=== PATIENT | female | born 1935 | race Caucasian/White ===

== ENCOUNTER 2017-03-18 06:10 | Day surgery (SDC) | payer MEDICARE, OTHER ==
[~2017-03-18 06:10] MED LIST: Lactated Ringers 1,000 ML IV SCH
[2017-03-18] MEDS ORDERED: Propofol 200 MG/20 ML SDV ONE (07:44)
[2017-03-18] MEDS ORDERED: fentaNYL 100 MCG/2 ML SDV ONE (07:44)
[2017-03-18 09:41] VITALS: BP 184/105
--- NOTE | 2017-03-18 16:30 | OR ---
PREOPERATIVE DIAGNOSES: Screening colonoscopy. History of bright red blood per rectum. POSTOPERATIVE DIAGNOSIS: Cecal polyp and mild sigmoid diverticulosis. PROCEDURE PROPOSED: Total flexible colonoscopy. PROCEDURE DONE: Total flexible colonoscopy. INDICATION: This is a 81-year-old female, who has not had a colonoscopy for 10 years, was recommended procedure screening colonoscopy. She also had an episode where she was having a little bit of bright red blood per rectum with wiping. She denies any family history and otherwise has no change in her bowels. TECHNIQUE: The patient was brought to the endoscopy suite, placed in left lateral decubitus position. She was sedated with propofol per [employer]ICE [employer]. The flexible video colonoscope was then passed transanally and under visualization advanced to the cecum. The patient was found to have a small polyp in the cecum, removed with 1 bite of the [employer] cold biopsy forceps and submitted for pathologic examination. Otherwise, the ascending, transverse, and descending colon was unremarkable. The sigmoid colon revealed some very mild diverticulosis and the rectal mucosa was normal. There was no evidence of any significant hemorrhoids or other pathology that would account for bright red blood per rectum. The scope was then withdrawn. She tolerated the procedure well. IMPRESSION: 1. Mild sigmoid diverticulosis. 2. Small cecal polyp, removed. PLAN: The patient is reassured, and I felt that at her age, she does not need any future colonoscopies. SCM: 03/18/2017 08:11:26 MODL: 03/18/2017 16:22:05 /[id number]
--- NOTE | 2017-04-01 15:53 | LETTER ---
04/01/2017 RE: SARAH ARRIAZA : 1935 Dear Sarah: The polyp removed from your colon was a small insignificant polyp known as a tubular adenoma. I do not feel you need any future examinations. If you have any further questions regarding this feel free to call. Respectfully,
== END 2017-03-18 09:30 | disposition home or self-care (01) ==
LOC: VM.SDS 06:10
PROVIDERS: ATTEND Surgery
DX: D12.0 Benign neoplasm of cecum (principal); K57.30 Diverticulosis of large intestine without perforation or abscess without bleeding; I25.10 Atherosclerotic heart disease of native coronary artery without angina pectoris; I25.83 Coronary atherosclerosis due to lipid rich plaque; I25.2 Old myocardial infarction; E78.5 Hyperlipidemia, unspecified; E11.9 Type 2 diabetes mellitus without complications; E03.9 Hypothyroidism, unspecified; I10 Essential (primary) hypertension; Z88.0 Allergy status to penicillin; Z79.82 Long term (current) use of aspirin; Z79.899 Other long term (current) drug therapy
CPT/HCPCS: 00810; 45380; J2704; J3010; 88305; J7120

== ENCOUNTER 2019-05-15 10:14 | Emergency (ER) | payer MEDICARE, OTHER ==
[2019-05-15] MEDS ORDERED: Ondansetron 4 MG/2 ML SDV IVPUSH ONE (10:24)
[2019-05-15] MEDS ORDERED: Sodium Chloride 0.9% 10 ML Syringe FLUSH PRN (10:24)
--- NOTE | 2019-05-15 10:29 | EDM.PDOC ---
ED HPI GENERAL MEDICAL PROBLEM - General Source of Information: Reports: Patient, EMS History Limitations: Reports: No Limitations <Javi Camargo - Last Filed: 05/15/19 11:01> <Saran Hernandez - Last Filed: 05/15/19 13:18> - General Chief Complaint: Syncope Stated Complaint: ER Time Seen by Provider: 05/15/19 10:22 - History of Present Illness INITIAL COMMENTS - FREE TEXT/NARRATIVE: Patient presents via EMS after reports of a syncopal episode at [facility]. Patient does not remember the incident. She states she took an oral nitroglycerin SL tablet after having felt a "twinge" in her chest. She denies any chest pain, sob, arm pain or numbness/tingling. She denies jaw or back pain. Some nausea. Blood sugar on scene was 155. Denies unilateral weakness, no speech difficulty, no facial droop. History includes cardiac stent placement 2-3 years ago, diabetes, hypothyroidism. (Javi Camargo) - Related Data Allergies Allergy/AdvReac Type Severity Reaction Status Date / Time codeine Allergy Hives Verified 05/15/19 10:42 cortisone Allergy Rash Verified 05/15/19 10:42 Penicillins Allergy Hives Verified 05/15/19 10:42 lisinopril AdvReac Cough Verified 05/15/19 10:42 Home Meds: Home Meds Ascorbic Acid [Vitamin C] 500 mg PO DAILY 02/02/14 [History] Aspirin [Halfprin] 81 mg PO DAILY 02/02/14 [History] Gabapentin [Neurontin] 100 mg PO BEDTIME 02/02/14 [History] Levothyroxine 150 mcg PO DAILY 02/02/14 [History] Losartan [Cozaar] 50 mg PO DAILY 02/02/14 [History] Metoprolol Succinate [Toprol XL] 75 mg PO DAILY 02/02/14 [History] Multivitamin [Multi Vitamin Daily] 1 each PO DAILY 02/02/14 [History] Omeprazole 20 mg PO DAILY 02/02/14 [History] Simvastatin [Zocor] 20 mg PO BEDTIME 02/02/14 [History] Acetaminophen/Diphenhydramine [Tylenol Pm Ex-Strength Caplet] 1 tab PO BEDTIME 03/11/17 [History] Fish Oil/[place]-3 Fatty Acids [Fish Oil 1,000 MG] 1,000 mg PO DAILY 03/11/17 [ History] Flaxseed Oil [Flaxseed] 1,000 mg PO DAILY 03/11/17 [History] cycloSPORINE [Restasis] 1 each OP BID 03/18/17 [History] Cholecalciferol (Vitamin D3) [Vitamin D] 5,000 unit PO DAILY 05/15/19 [History] Nitroglycerin [Nitrostat] 0.4 mg SL ASDIRECTED PRN 05/15/19 [History] Vitamin B Complex 1 each PO DAILY 05/15/19 [History] Past Medical History HEENT History: Reports: Allergic Rhinitis, Cataract Cardiovascular History: Reports: CAD, High Cholesterol, Hypertension, [place], Stents Respiratory History: Reports: None, SOB Gastrointestinal History: Reports: GERD, Other (See Below) Other Gastrointestinal History: hematochezia Genitourinary History: Reports: Urinary Incontinence [employer]PER[employer]OR [employer]ILL History: Reports: Prolapsed Uterus, Other (See Below) 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 D&C Musculoskeletal History: Reports: Arthritis Neurological History: Reports: Neuropathy, Diabetic Psychiatric History: Reports: Anxiety, Depression, Other (See Below) Other Psychiatric History: insomnia Endocrine/Metabolic History: Reports: Diabetes, Type II, Hypothyroidism Hematologic History: Reports: None Oncologic (Cancer) History: Reports: None Dermatologic History: Reports: None - Past Surgical History Head Surgeries/Procedures: Reports: None GI Surgical History: Reports: None Female Surgical History: Reports: D&C, Hysterectomy, Oophorectomy Neurological Surgical History: Reports: None <Javi Camargo M - Last Filed: 05/15/19 11:01> ED ROS GENERAL - Review of Systems Review Of Systems: See Below Constitutional: Reports: No Symptoms HEENT: Reports: No Symptoms Respiratory: Reports: Pleuritic Chest Pain Cardiovascular: Reports: Chest Pain, Syncope Endocrine: Reports: No Symptoms GI/Abdominal: Reports: No Symptoms : Reports: No Symptoms Musculoskeletal: Reports: No Symptoms Skin: Reports: No Symptoms Neurological: Reports: No Symptoms Psychiatric: Reports: No Symptoms Hematologic/Lymphatic: Reports: No Symptoms Immunologic: Reports: No Symptoms <Saran Hernandez W - Last Filed: 05/15/19 13:18> - Physical Exam Exam: See Below Exam Limited By: No Limitations General Appearance: Alert, WD/WN, No Apparent Distress Throat/Mouth: Normal Inspection, Normal Lips, Normal Teeth, Normal Voice Head Exam: Atraumatic, Normocephalic Neck: Normal Inspection, Supple, Non-Tender, Full Range of Motion Respiratory/Chest: No Respiratory Distress, Lungs Clear, Normal Breath Sounds, No Accessory Muscle Use, Chest Non-Tender Cardiovascular: Normal Peripheral Pulses, Regular Rate, Rhythm, No Edema, No Gallop, No JVD, No Murmur, No Rub GI/Abdominal: Normal Bowel Sounds, Soft, Non-Tender, No Organomegaly, No Distention, No Mass (Female) Exam: Deferred Rectal (Female) Exam: Deferred Neuro Exam (Abbreviated): Alert, Oriented, CN II-XII Intact, No Motor/Sensory Deficits Extremities: Normal Inspection, Normal Range of Motion, Normal Capillary Refill Psychiatric: Normal Affect, Normal Mood Skin Exam: Warm, Dry, Intact, Normal Color, No Rash <Saran Hernandez W - Last Filed: 05/15/19 13:18> EKG INTERPRETATION Rhythm: NSR [place]: Normal P-Wave: Present QRS: Normal ST-T: Normal QT: Normal <Saran Hernandez W - Last Filed: 05/15/19 13:18> - Vital Signs Last Recorded V/S: Last Vital Signs Temp 35.9 C 05/15/19 10:15 Pulse 71 05/15/19 11:31 Resp 16 05/15/19 11:31 BP 144/61 H 05/15/19 11:31 Pulse Ox 97 05/15/19 10:40 - Orders/Labs/Meds Orders: Active Orders 24 hr Category Date Time Status EKG Documentation Completion [RC] STAT Care 05/15/19 10:24 Active CULTURE URINE [RM] Stat Lab 05/15/19 12:35 Received Lactated Ringers [Ringers, Lactated] 1,000 ml Med 05/15/19 10:30 Active IV ASDIRECTED Sodium Chloride 0.9% [Saline Flush] Med 05/15/19 10:24 Active 10 ml FLUSH ASDIRECTED PRN Saline Lock Insert [OM.PC] Routine Oth 05/15/19 10:24 Ordered Medication Orders Lactated Ringer's (Ringers, Lactated) 1,000 mls @ 100 mls/hr IV ASDIRECTED MURIEL Last Admin: 05/15/19 10:36 Dose: 100 mls/hr Sodium Chloride (Saline Flush) 10 ml FLUSH ASDIRECTED PRN PRN Reason: Keep Vein Open Labs: Laboratory Tests 05/15/19 05/15/19 05/15/19 Range/Units 10:36 10:36 10:36 WBC 6.1 (4.0-10.0) x10^3/uL RBC 4.12 (4.00-5.50) x10^6/uL Hgb 13.0 (12.0-16.0) g/dL Hct 39.0 (33.0-47.0) % MCV 94.7 H D (78.0-93.0) fL MCH 31.6 (26.0-32.0) pg MCHC 33.3 (32.0-36.0) g/dL RDW Coeff of Kev 13.0 (10.0-15.0) % Plt Count 207 (130-400) x10^3/uL Neut % (Auto) 44.9 L (50.0-80.0) % Lymph % (Auto) 39.7 (25.0-50.0) % [place] % (Auto) 11.5 H (2.0-11.0) % Eos % (Auto) 3.6 (0.0-4.0) % Baso % (Auto) 0.3 (0.2-1.2) % PT 10.1 (10.0-12.8) SEC INR 0.9 L (2.0-3.5) Sodium 142 (136-145) mmol/L Potassium 4.1 (3.5-5.1) mmol/L Chloride 105 (98-107) mmol/L Carbon Dioxide 28 (21-32) mmol/L Anion Gap 13.1 (10-20) mmol/L BUN 19 H (7-18) mg/dL Creatinine 0.8 (0.55-1.02) mg/dL Est Cr Clr Drug Dosing TNP Estimated GFR (MDRD) > 60 Glucose 170 H (74-106) mg/dL Calcium 8.7 (8.5-10.1) mg/dL Corrected Calcium 9.10 (8.5-10.1) mg/dL Magnesium 1.6 L (1.8-2.4) mg/dL Total Bilirubin 0.5 (0.2-1.0) mg/dL AST 15 (15-37) U/L ALT 21 (14-59) U/L Alkaline Phosphatase 68 (46-116) U/L Creatine Kinase 56 (26-192) U/L Troponin I < 0.017 (<=0.056) ng/mL NT-Pro-B Natriuret Pep 304 (<=450) pg/mL Total Protein 7.1 (6.4-8.2) g/dL Albumin 3.5 (3.4-5.0) g/dL Globulin 3.6 Albumin/Globulin Ratio 0.97 TSH, Ultra Sensitive 2.424 (0.358-3.74) uIU/mL Urine Color (YELLOW) Urine Appearance (CLEAR) Urine pH (5.0-8.0) Ur Specific [place] Urine Protein (NEGATIVE) mg/dL Urine Glucose (UA) (NEGATIVE) mg/dL Urine Ketones (NEGATIVE) mg/dL Urine Occult Blood (NEGATIVE) Urine Nitrite (NEGATIVE) Urine Bilirubin (NEGATIVE) Urine Urobilinogen (0.2) EU/dL Ur Leukocyte Esterase (NEGATIVE) Urine RBC (NOT SEEN) /HPF Urine WBC (NOT SEEN) /HPF Ur Squamous Epith Cells (NEGATIVE) /HPF Urine Bacteria (NEGATIVE) /HPF Urine Mucus (NEGATIVE) /LPF 05/15/19 Range/Units 12:35 WBC (4.0-10.0) x10^3/uL RBC (4.00-5.50) x10^6/uL Hgb (12.0-16.0) g/dL Hct (33.0-47.0) % MCV (78.0-93.0) fL MCH (26.0-32.0) pg MCHC (32.0-36.0) g/dL RDW Coeff of Kev (10.0-15.0) % Plt Count (130-400) x10^3/uL Neut % (Auto) (50.0-80.0) % Lymph % (Auto) (25.0-50.0) % [place] % (Auto) (2.0-11.0) % Eos % (Auto) (0.0-4.0) % Baso % (Auto) (0.2-1.2) % PT (10.0-12.8) SEC INR (2.0-3.5) Sodium (136-145) mmol/L Potassium (3.5-5.1) mmol/L Chloride (98-107) mmol/L Carbon Dioxide (21-32) mmol/L Anion Gap (10-20) mmol/L BUN (7-18) mg/dL Creatinine (0.55-1.02) mg/dL Est Cr Clr Drug Dosing Estimated GFR (MDRD) Glucose (74-106) mg/dL Calcium (8.5-10.1) mg/dL Corrected Calcium (8.5-10.1) mg/dL Magnesium (1.8-2.4) mg/dL Total Bilirubin (0.2-1.0) mg/dL AST (15-37) U/L ALT (14-59) U/L Alkaline Phosphatase (46-116) U/L Creatine Kinase (26-192) U/L Troponin I (<=0.056) ng/mL NT-Pro-B Natriuret Pep (<=450) pg/mL Total Protein (6.4-8.2) g/dL Albumin (3.4-5.0) g/dL Globulin Albumin/Globulin Ratio TSH, Ultra Sensitive (0.358-3.74) uIU/mL Urine Color Yellow (YELLOW) Urine Appearance Cloudy H (CLEAR) Urine pH 6.0 (5.0-8.0) Ur Specific [place] 1.015 Urine Protein Negative (NEGATIVE) mg/dL Urine Glucose (UA) Negative (NEGATIVE) mg/dL Urine Ketones Negative (NEGATIVE) mg/dL Urine Occult Blood Negative (NEGATIVE) Urine Nitrite Negative (NEGATIVE) Urine Bilirubin Negative (NEGATIVE) Urine Urobilinogen 0.2 (0.2) EU/dL Ur Leukocyte Esterase Moderate H (NEGATIVE) Urine RBC 0-5 (NOT SEEN) /HPF Urine WBC 10-20 H (NOT SEEN) /HPF Ur Squamous Epith Cells Few H (NEGATIVE) /HPF Urine Bacteria Rare (NEGATIVE) /HPF Urine Mucus Few H (NEGATIVE) /LPF Meds: Medications Generic Name Dose Route Start Last Admin Trade Name Freq PRN Reason Stop Dose Admin Lactated Ringer's 1,000 mls @ 100 mls/hr 05/15/19 10:30 05/15/19 10:36 Ringers, Lactated IV 100 mls/hr ASDIRECTED MURIEL Administration Sodium Chloride 10 ml 05/15/19 10:24 Saline Flush FLUSH ASDIRECTED PRN Keep Vein Open Discontinued Medications Generic Name Dose Route Start Last Admin Trade Name Kanu PRN Reason Stop Dose Admin Nitrofurantoin Macrocrystals 2 packet 05/15/19 12:53 05/15/19 13:09 Take Home: Nitrofur [place]/Ma 100 Mg, 2 Pack PO 05/15/19 12:54 2 packet ONETIME ONE Administration Nitrofurantoin Macrocrystals Confirm 05/15/19 13:03 Macrobid Administered 05/15/19 13:04 Dose 200 mg .ROUTE .STK-MED ONE Ondansetron HCl 4 mg 05/15/19 10:24 05/15/19 10:36 Zofran IVPUSH 05/15/19 10:25 4 mg ONETIME ONE Administration Departure <Javi Camargo - Last Filed: 05/15/19 11:01> - Departure Time of Disposition: 13:15 <Saran Hernandez - Last Filed: 05/15/19 13:18> - Departure Disposition: Home, Self-Care 01 Clinical Impression: Syncope, Dehydration, UTI (urinary tract infection) - Discharge Information Instructions: Nitrofurantoin tablets or capsules, Dehydration, Adult, Easy-to- Read, Urinary Tract Infection, Adult, Probiotics Referrals: Vero Mcnamara MD [Primary Care Provider] - Forms: ED Department Discharge Additional Instructions: Home to rest. Continue to drink plenty of fluids Macrobid 100mg twice daily for 5 days Recheck in clinic in 10-14 days, sooner if having chest pain, shortness of breath, or not gradually improving. <Javi Camargo - Last Filed: 05/15/19 11:01> <Saran Hernandez - Last Filed: 05/15/19 13:18> - Assessment/Plan Plan: Pt. was given a liter of NS IV. She states that she was feeling better after the fluids. She denied any further chest pain or lightheadedness. She was offered admission but refused, stating she was hungry and wanted to go home to eat. She was started on Macrobid 100mg BID for 5 days. Advised to follow-up in ED if she has any further chest pain, lightheadedness, or syncope. (Saran Hernandez )
[2019-05-15] MEDS ORDERED: Lactated Ringers 1,000 ML IV SCH (10:30)
[2019-05-15 11:13] LABS: ANION GAP 13.1 mmol/L (10-20); CHLORIDE,CL 105 mmol/L (98-107); SODIUM,NA 142 mmol/L (136-145)
--- NOTE | 2019-05-15 11:43 | CR ---
[id number] RAD/RAD Chest PA or AP 1V EXAM: RAD Chest PA or AP 1V INDICATION: SYNCOPE. COMPARISON: October 14, 2014. DISCUSSION: Cardiomediastinal silhouette is normal in size and contour. No infiltrate, effusion, pneumothorax, or edema. IMPRESSION: No acute cardiopulmonary abnormality. Mathew Pantoja DO 05/15/19 1142 Thank you for allowing us to participate in the care of your patient.
--- NOTE | 2019-05-15 11:45 | CT ---
[id number] CT/CT Head WO IV EXAM: CT Head WO IV CLINICAL DATA: SYNCOPE. COMPARISON STUDY: None FINDINGS: No intracranial hemorrhage, extra-axial fluid collection, mass, or acute ischemia. Generalized parenchymal atrophy with scattered areas of nonspecific white matter disease, commonly seen as sequela of chronic microvascular ischemia. Soft tissues are unremarkable. Paranasal sinuses and mastoid air cells are clear. IMPRESSION: No acute intracranial findings. Mathew Pantoja DO 05/15/19 1144 Thank you for allowing us to participate in the care of your patient.
[2019-05-15] MEDS ORDERED: Take Home: Nitrofurantoin Monohydrate/Macrocrystalline 100 MG, 2 Cap Pack PO ONE (12:53)
[2019-05-15] MEDS ORDERED: Nitrofurantoin Monohydrate/Macrocrystalline 100 MG Cap ONE (13:03)
[2019-05-15 13:42] VITALS: BP 145/78; PULSE 72
== END 2019-05-15 13:05 | disposition home or self-care (01) ==
LOC: VM.ED 10:14
DX: R55 Syncope and collapse (principal); N39.0 Urinary tract infection, site not specified; E86.0 Dehydration; E03.9 Hypothyroidism, unspecified; I10 Essential (primary) hypertension; I25.2 Old myocardial infarction; I25.10 Atherosclerotic heart disease of native coronary artery without angina pectoris; E11.40 Type 2 diabetes mellitus with diabetic neuropathy, unspecified; K21.9 Gastro-esophageal reflux disease without esophagitis; Z95.5 Presence of coronary angioplasty implant and graft; Z88.5 Allergy status to narcotic agent; Z88.0 Allergy status to penicillin; Z88.8 Allergy status to other drugs, medicaments and biological substances; Z79.82 Long term (current) use of aspirin; Z90.710 Acquired absence of both cervix and uterus
CPT/HCPCS: 70450; 71045; 80053; 81001; 82550; 83735; 83880; 84443; 84484; 85025; 85610; 87086; 93005; 96361; 96374; 99285; A9270; J2405; J7120; 93010; 99284-GF

== ENCOUNTER 2021-09-13 14:25 | Emergency (ER) | payer MEDICARE, OTHER ==
[2021-09-13 18:26] VITALS: BP 146/91; PULSE 90
== END 2021-09-13 16:31 | disposition home or self-care (01) ==
LOC: VM.ED 14:25
DX: S01.01XA Laceration without foreign body of scalp, initial encounter (principal); I25.10 Atherosclerotic heart disease of native coronary artery without angina pectoris; E78.00 Pure hypercholesterolemia, unspecified; I10 Essential (primary) hypertension; I25.2 Old myocardial infarction; E11.9 Type 2 diabetes mellitus without complications; E03.9 Hypothyroidism, unspecified; Z95.5 Presence of coronary angioplasty implant and graft; Z88.5 Allergy status to narcotic agent; Z88.0 Allergy status to penicillin; Z88.8 Allergy status to other drugs, medicaments and biological substances; Z79.82 Long term (current) use of aspirin; Z79.899 Other long term (current) drug therapy; W18.09XA Striking against other object with subsequent fall, initial encounter
CPT/HCPCS: 12002; 70450; 99283; 99283-25

== ENCOUNTER 2021-10-05 12:20 | Emergency (ER) | payer MEDICARE, OTHER ==
[2021-10-05 13:27] LABS: PTT,PARTIAL THROMBOPLSTIN TIME 23.4 SEC (20.5-30.9)
[2021-10-05 13:31] LABS: ANION GAP 10.2 mmol/L (5-15); CHLORIDE,CL 102 mmol/L (98-107); SODIUM,NA 138 mmol/L (136-145)
[2021-10-05] MEDS ORDERED: Lactated Ringers 1,000 ML IV ONE (15:03)
[2021-10-05 16:21] VITALS: BP 148/78; PULSE 61
== END 2021-10-05 16:13 | disposition home or self-care (01) ==
LOC: VM.ED 12:20
DX: R00.1 Bradycardia, unspecified (principal); I25.10 Atherosclerotic heart disease of native coronary artery without angina pectoris; E78.00 Pure hypercholesterolemia, unspecified; I10 Essential (primary) hypertension; I25.2 Old myocardial infarction; K21.9 Gastro-esophageal reflux disease without esophagitis; E11.9 Type 2 diabetes mellitus without complications; E03.9 Hypothyroidism, unspecified; Z88.5 Allergy status to narcotic agent; Z88.0 Allergy status to penicillin; Z88.8 Allergy status to other drugs, medicaments and biological substances; Z79.899 Other long term (current) drug therapy; Z79.82 Long term (current) use of aspirin; Z95.5 Presence of coronary angioplasty implant and graft
CPT/HCPCS: 36415; 70450; 80053; 84484; 85025; 85610; 85730; 93005; 99284; 99285-25; J7120

== ENCOUNTER 2023-01-09 10:31 | Emergency (ER) | payer MEDICARE, OTHER ==
[2023-01-09 11:00] LABS: BASOPHILS PERCENT AUTO 0.2 % (0.2-1.2); EOSINOPHILS ABSOLUTE AUTO 0.1 x10^3/uL (0.0-0.5); EOSINOPHILS PERCENT AUTO 2.3 % (0.0-4.0); HEMATOCRIT 37.2 % (33.0-47.0); HEMOGLOBIN 12.8 g/dL (12.0-16.0); IMMATURE GRAN ABSOLUTE AUTO 0.01 x10^3/uL (0.00-0.07); LYMPHOCYTES ABSOLUTE AUTO 1.2 x10^3/uL (1.0-4.8); MEAN CORPUSCULAR HEMOGLOBIN 30.8 pg (26.0-32.0); MEAN CORPUSCULAR HGB CONC 34.4 g/dL (32.0-36.0); MEAN CORPUSCULAR VOLUME 89.4 fL (78.0-93.0); MONOCYTES ABSOLUTE AUTO 0.6 x10^3/uL (0.0-0.8); MONOCYTES PERCENT AUTO 10.6 % (2.0-11.0); NEUTROPHILS ABSOLUTE AUTO 3.6 x10^3/uL (1.8-7.7); NEUTROPHILS PERCENT AUTO 64.7 % (50.0-80.0); PLATELET COUNT,PLT 200 x10^3/uL (130-400); RED BLOOD CELL COUNT 4.16 x10^6/uL (4.00-5.50); WHITE BLOOD CELL COUNT,WBC 5.6 x10^3/uL (4.0-10.0)
[2023-01-09 11:21] LABS: A/G RATIO 1.03; ALANINE AMINOTRANSFERASE,ALT 19 U/L (14-59); ALBUMIN 3.6 g/dL (3.4-5.0); ALKALINE PHOSPHATASE 69 U/L (46-116); AMYLASE 22 U/L (25-115); ASPARTATE AMNIOTRANSFERASE,AST 20 U/L (15-37); BILIRUBIN TOTAL 0.7 mg/dL (0.2-1.0); BLOOD UREA NITROGEN,BUN 21 mg/dL (7-18); CALCIUM 9.1 mg/dL (8.5-10.1); CARBON DIOXIDE,CO2 28 mmol/L (21-32); CHLORIDE,CL 103 mmol/L (98-107); CREATINE KINASE,CK 70 U/L (26-192); CREATININE 0.7 mg/dL (0.55-1.02); GLUCOSE RANDOM 130 mg/dL (70-99); LACTATE DEHYDROGENASE,LDH 159 U/L (81-234); LIPASE 57 U/L (73-393); POTASSIUM,K 3.8 mmol/L (3.5-5.1); PROTEIN TOTAL,TP 7.1 g/dL (6.4-8.2); SODIUM,NA 142 mmol/L (136-145)
[2023-01-09 11:22] LABS: ANION GAP 14.8 mmol/L (5-15); C-REACTIVE PROTEIN < 0.2 mg/dL (<=0.9); ESTIMATED GFR 85 mL/min (>=60)
[2023-01-09 12:25] VITALS: BP 186/70; PULSE 65
== END 2023-01-09 12:10 | disposition home or self-care (01) ==
LOC: VM.ED 10:31
DX: R07.2 Precordial pain (principal); I25.10 Atherosclerotic heart disease of native coronary artery without angina pectoris; E78.00 Pure hypercholesterolemia, unspecified; I10 Essential (primary) hypertension; I25.2 Old myocardial infarction; K21.9 Gastro-esophageal reflux disease without esophagitis; E11.40 Type 2 diabetes mellitus with diabetic neuropathy, unspecified; E03.9 Hypothyroidism, unspecified; Z88.5 Allergy status to narcotic agent; Z88.0 Allergy status to penicillin; Z88.8 Allergy status to other drugs, medicaments and biological substances; Z79.82 Long term (current) use of aspirin; Z79.899 Other long term (current) drug therapy
CPT/HCPCS: 71046; 80053; 82150; 82550; 83615; 83690; 83735; 84484; 85025; 86140; 93005; 93010; 99284; 99285

== ENCOUNTER 2024-02-14 09:28 | Inpatient (IN) | payer MEDICARE, OTHER ==
[2024-02-14 09:44] LABS: BASOPHILS PERCENT AUTO 0.1 % (0.2-1.2); EOSINOPHILS ABSOLUTE AUTO 0.2 x10^3/uL (0.0-0.5); EOSINOPHILS PERCENT AUTO 2.3 % (0.0-4.0); HEMATOCRIT 32.8 % (33.0-47.0); HEMOGLOBIN 10.7 g/dL (12.0-16.0); IMMATURE GRAN ABSOLUTE AUTO 0.03 x10^3/uL (0.00-0.07); LYMPHOCYTES ABSOLUTE AUTO 2.2 x10^3/uL (1.0-4.8); LYMPHOCYTES PERCENT AUTO 25.7 % (25.0-50.0); MEAN CORPUSCULAR HEMOGLOBIN 28.6 pg (26.0-32.0); MEAN CORPUSCULAR HGB CONC 32.6 g/dL (32.0-36.0); MEAN CORPUSCULAR VOLUME 87.7 fL (78.0-93.0); MONOCYTES PERCENT AUTO 11.9 % (2.0-11.0); NEUTROPHILS PERCENT AUTO 59.6 % (50.0-80.0); PLATELET COUNT,PLT 355 x10^3/uL (130-400); RED BLOOD CELL COUNT 3.74 x10^6/uL (4.00-5.50); WHITE BLOOD CELL COUNT,WBC 8.4 x10^3/uL (4.0-10.0)
[2024-02-14 10:10] LABS: PROTHROMBIN TIME 10.2 SEC (8.9-11.5); PTT,PARTIAL THROMBOPLSTIN TIME 26.9 SEC (21.9-33.8)
[2024-02-14 10:13] LABS: A/G RATIO 0.75; ANION GAP 14.7 mmol/L (5-15); BILIRUBIN TOTAL 0.6 mg/dL (0.2-1.0); C-REACTIVE PROTEIN 3.25 mg/dL (<=0.50); CALCIUM 9.4 mg/dL (8.5-10.1); CREATININE 0.9 mg/dL (0.55-1.02); EST CRCL DRUG DOSING (CG) 40.38 mL/min; MAGNESIUM 1.7 mg/dL (1.8-2.4); POTASSIUM,K 4.7 mmol/L (3.5-5.1); TSH ULTRASENSITIVE 0.942 uIU/mL (0.358-3.74)
[2024-02-14] MEDS: Aspirin 81 MG Tab.Chew PO ONE (10:15)
[2024-02-14 10:28] LABS: D-DIMER QUANTITATIVE 4.61 mg/LFEU (<=0.58)
[2024-02-14] MEDS: Iopamidol 755 Mg/ML 100 ML Bottle IVPUSH ONE (11:25)
[2024-02-14] MEDS: cefTRIAXone 1 GM Vial IVPUSH ONE (12:42)
[2024-02-14 12:55] LABS: LACTIC ACID 0.9 mmol/L (0.4-2.0)
[2024-02-14] MEDS ORDERED: oxyCODONE 5 MG Tab PO PRN (14:14)
[2024-02-14] MEDS ORDERED: Nitroglycerin 0.4 MG Tab.SL SL PRN (14:14)
[2024-02-14] MEDS: Azithromycin 250 MG Tab PO SCH (15:14)
[2024-02-14] MEDS: Magnesium Oxide 400 MG Tab PO SCH (15:14)
[2024-02-14 17:05] LABS: PRO B-TYPE NATRIUR PEPT,BNPPRO 1005 pg/mL (<=450)
[2024-02-14] MEDS: Acetaminophen 500 MG Tab PO SCH ×2 (18:22→23:39)
[2024-02-14] MEDS: Aspirin 81 MG Tab.EC PO SCH (20:38)
[2024-02-14] MEDS: Gabapentin 100 MG Cap PO SCH (20:38)
[2024-02-14] MEDS: Sennosides 8.6 MG Tab PO SCH (20:38)
[2024-02-14] MEDS: Oxybutynin 5 MG Tab PO SCH (20:39)
[2024-02-14] MEDS: Simvastatin 20 MG Tab PO SCH (20:39)
[2024-02-14] MEDS ORDERED: Non-Formulary Medication 1 Each (Celecoxib [Celecoxib] 200 MG Capsule) PO SCH (21:00)
[2024-02-14] MEDS ORDERED: Non-Formulary Medication 1 Each (Lifitegrast [Xiidra] 1 EACH Droperette) EYEBOTH SCH (21:00)
[2024-02-15] MEDS: Omeprazole 20 MG Cap.CR PO SCH (06:48)
[2024-02-15 06:57] LABS: BASOPHILS PERCENT AUTO 0.3 % (0.2-1.2); EOSINOPHILS ABSOLUTE AUTO 0.2 x10^3/uL (0.0-0.5); EOSINOPHILS PERCENT AUTO 2.6 % (0.0-4.0); HEMATOCRIT 29.7 % (33.0-47.0); IMMATURE GRAN ABSOLUTE AUTO 0.03 x10^3/uL (0.00-0.07); LYMPHOCYTES ABSOLUTE AUTO 1.7 x10^3/uL (1.0-4.8); LYMPHOCYTES PERCENT AUTO 24.1 % (25.0-50.0); MEAN CORPUSCULAR HEMOGLOBIN 29.2 pg (26.0-32.0); MEAN CORPUSCULAR HGB CONC 33.7 g/dL (32.0-36.0); MEAN CORPUSCULAR VOLUME 86.6 fL (78.0-93.0); MONOCYTES PERCENT AUTO 14.4 % (2.0-11.0); NEUTROPHILS ABSOLUTE AUTO 4.1 x10^3/uL (1.8-7.7); NEUTROPHILS PERCENT AUTO 58.2 % (50.0-80.0); PLATELET COUNT,PLT 306 x10^3/uL (130-400); RED BLOOD CELL COUNT 3.43 x10^6/uL (4.00-5.50)
[2024-02-15 07:12] LABS: ANION GAP 12.2 mmol/L (5-15); CREATININE 0.7 mg/dL (0.55-1.02); EST CRCL DRUG DOSING (CG) 51.91 mL/min; POTASSIUM,K 4.2 mmol/L (3.5-5.1)
[2024-02-15 07:22] LABS: C-REACTIVE PROTEIN 1.96 mg/dL (<=0.50); MAGNESIUM 1.7 mg/dL (1.8-2.4)
[2024-02-15] MEDS: Isosorbide Mononitrate 30 MG Tab.ER PO SCH (08:56)
[2024-02-15] MEDS: Losartan 50 MG Tab PO SCH (08:56)
[2024-02-15] MEDS: Cholecalciferol (Vitamin D3) 25 MCG Tab PO SCH (08:56)
[2024-02-15] MEDS: Ascorbic Acid 500 MG Tab PO SCH (08:56)
[2024-02-15] MEDS: Multivitamin Tab PO SCH (08:57)
[2024-02-15] MEDS: Metoprolol Succinate 25 MG Tab.ER PO SCH (08:57)
[2024-02-15] MEDS: cefTRIAXone 1 GM Vial IVPUSH SCH (08:58)
[2024-02-15] MEDS: Polyethylene Glycol 3350 Powder 17 GM Packet PO SCH (09:04)
[2024-02-15] MEDS: Acetaminophen Soln 160 MG/5 ML UD Cup PO SCH (12:31)
[2024-02-15] MEDS: Enoxaparin 40 MG/0.4 ML Syringe SUBCUT SCH (12:31)
[2024-02-16] MEDS: Acetaminophen Soln 160 MG/5 ML UD Cup ONE (06:21)
[2024-02-16 06:45] LABS: BASOPHILS PERCENT AUTO 0.3 % (0.2-1.2); EOSINOPHILS ABSOLUTE AUTO 0.2 x10^3/uL (0.0-0.5); EOSINOPHILS PERCENT AUTO 2.2 % (0.0-4.0); HEMATOCRIT 32.6 % (33.0-47.0); HEMOGLOBIN 10.9 g/dL (12.0-16.0); IMMATURE GRAN ABSOLUTE AUTO 0.03 x10^3/uL (0.00-0.07); LYMPHOCYTES ABSOLUTE AUTO 2.3 x10^3/uL (1.0-4.8); LYMPHOCYTES PERCENT AUTO 33.3 % (25.0-50.0); MEAN CORPUSCULAR HEMOGLOBIN 29.1 pg (26.0-32.0); MEAN CORPUSCULAR HGB CONC 33.4 g/dL (32.0-36.0); MEAN CORPUSCULAR VOLUME 86.9 fL (78.0-93.0); MONOCYTES ABSOLUTE AUTO 0.8 x10^3/uL (0.0-0.8); MONOCYTES PERCENT AUTO 11.3 % (2.0-11.0); NEUTROPHILS ABSOLUTE AUTO 3.6 x10^3/uL (1.8-7.7); NEUTROPHILS PERCENT AUTO 52.5 % (50.0-80.0); PLATELET COUNT,PLT 338 x10^3/uL (130-400); RED BLOOD CELL COUNT 3.75 x10^6/uL (4.00-5.50); WHITE BLOOD CELL COUNT,WBC 6.9 x10^3/uL (4.0-10.0)
[2024-02-16 07:19] LABS: A/G RATIO 0.75; BILIRUBIN TOTAL 0.3 mg/dL (0.2-1.0); C-REACTIVE PROTEIN 1.14 mg/dL (<=0.50); CALCIUM 9.5 mg/dL (8.5-10.1); CREATININE 0.8 mg/dL (0.55-1.02); EST CRCL DRUG DOSING (CG) 45.42 mL/min; MAGNESIUM 1.7 mg/dL (1.8-2.4); POTASSIUM,K 4.1 mmol/L (3.5-5.1)
[2024-02-16 07:20] LABS: ANION GAP 11.1 mmol/L (5-15)
[2024-02-16] MEDS: Cefuroxime 250 MG Tab PO SCH (12:27)
[2024-02-16 13:07] VITALS: BP 131/62; PULSE 75
[2024-02-16] MEDS ORDERED: Omeprazole 20 MG Cap.CR PO SCH (17:00)
== END 2024-02-16 11:55 | disposition home or self-care (01) | DRG 194 ==
LOC: VM.ED 09:28 → VM.MS 12:29
PROVIDERS: ADMIT Internal Medicine; ATTEND Family Medicine
DX: R07.2 Precordial pain (principal); J18.9 Pneumonia, unspecified organism; E87.1 Hypo-osmolality and hyponatremia; I48.20 Chronic atrial fibrillation, unspecified; I10 Essential (primary) hypertension; J47.0 Bronchiectasis with acute lower respiratory infection; E11.51 Type 2 diabetes mellitus with diabetic peripheral angiopathy without gangrene; I11.9 Hypertensive heart disease without heart failure; E78.00 Pure hypercholesterolemia, unspecified; K21.9 Gastro-esophageal reflux disease without esophagitis; M19.90 Unspecified osteoarthritis, unspecified site; E11.40 Type 2 diabetes mellitus with diabetic neuropathy, unspecified; I25.10 Atherosclerotic heart disease of native coronary artery without angina pectoris; F32.A Depression, unspecified; R07.9 Chest pain, unspecified; F41.9 Anxiety disorder, unspecified; E03.9 Hypothyroidism, unspecified; R35.0 Frequency of micturition; E83.42 Hypomagnesemia; D50.0 Iron deficiency anemia secondary to blood loss (chronic); Z96.652 Presence of left artificial knee joint; Z88.5 Allergy status to narcotic agent; Z88.0 Allergy status to penicillin; Z88.8 Allergy status to other drugs, medicaments and biological substances; Z79.82 Long term (current) use of aspirin; Z79.899 Other long term (current) drug therapy; I25.2 Old myocardial infarction; Z95.5 Presence of coronary angioplasty implant and graft; Z90.710 Acquired absence of both cervix and uterus; Z90.722 Acquired absence of ovaries, bilateral; Z98.49 Cataract extraction status, unspecified eye
CPT/HCPCS: 36415; 71045; 71046; 71275; 80048; 80053; 82947; 83605; 83735; 83880; 84443; 84484; 85025; 85379; 85610; 85730; 86140; 87040; 93005; 93010; 97161-GP; 97165-GO; 97535-GO; 99284; 99285; A9270-GY; J0696; J1650; Q9967